=== PATIENT | female | born 2000 ===

== ENCOUNTER → 2019-03-30 | Outpatient (CLI) | payer BC | LOC: LAB SHORT 19:14 → LAB 19:14 | DX: N39.0 Urinary tract infection, site not specified (principal); N30.00 Acute cystitis without hematuria | CPT/HCPCS: 87086 ==

== ENCOUNTER → 2019-09-18 | Outpatient (CLI) | payer BC | END | disposition home or self-care (01) | LOC: LAB SHORT 10:09 → LAB EV 10:09 | DX: N39.0 Urinary tract infection, site not specified (principal) | CPT/HCPCS: 87086 ==